=== PATIENT | female | born 1970 | race Caucasian/White ===

== ENCOUNTER 2018-06-03 11:44 | Inpatient (IN) | payer MEDICAID ==
[~2018-06-03] VITALS: Ht 170.2 cm; Wt 86.2 kg
[2018-06-03 13:07] LABS: BASOPHIL % 0.4 % (0-2); PLATELET COUNT 176 x10^3mcL (130-400); RED CELL DISTRIBUTION WIDTH 13.7 % (11.5-14.5)
[2018-06-03 13:11] LABS: CALCIUM 10.6 mg/dL (8.5-10.1); CARBON DIOXIDE 22.1 mmol/L (21-32); CHLORIDE SERUM 107 mmol/L (98-107); CREATININE SERUM 0.7 mg/dL (0.6-1.0); GFR1 > 60 mL/min; GLUCOSE SERUM 134 mg/dL (74-106); POTASSIUM SERUM 3.5 mmol/L (3.5-5.1); SODIUM SERUM 143 mmol/L (136-145)
[2018-06-03 13:12] LABS: ALBUMIN 3.6 g/dL (3.4-5.0); ALKALINE PHOSPHATASE 123 U/L (46-116); ALT/SGPT 102 U/L (14-59); AMYLASE 31 U/L (25-115); AST/SGOT 99 U/L (15-37); BILIRUBIN TOTAL 0.95 mg/dL (0.20-1.00); LIPASE 121 IU/L (73-393); TOTAL PROTEIN, SERUM 7.1 g/dL (6.4-8.2)
[2018-06-03 14:02] LABS: microscopic required? YES; urine erythrocyte 3+ (NEGATIVE)
[2018-06-03 16:16] LABS: MAGNESIUM 1.7 mg/dL (1.8-2.4)
[2018-06-03 16:17] LABS: CHOLESTEROL/HDL RATIO 4.2
[2018-06-03 16:18] LABS: FREE T4 3.32 ng/dL (0.76-1.46)
[2018-06-03 16:19] LABS: T3 TOTAL 3.91 ng/mL
[2018-06-03 16:27] LABS: FREE THYROXINE INDEX 7.3 ug/dL (1.4-4.5); T4(THYROXINE) 18.2 ug/dL (4.7-13.3)
[2018-06-03 18:37] VITALS: BP 137/59
[2018-06-03 19:56] LABS: AMPHETAMINE QUAL UR NONE DETECTED (See below)
[2018-06-03 20:30] VITALS: BP 124/55
[2018-06-04 05:52] VITALS: BP 119/53
[2018-06-04 06:10] LABS: BASOPHIL % 0.1 % (0-2); PLATELET COUNT 136 x10^3mcL (130-400); RED CELL DISTRIBUTION WIDTH 13.5 % (11.5-14.5)
[2018-06-04 06:22] LABS: CALCIUM 8.5 mg/dL (8.5-10.1); CARBON DIOXIDE 24.4 mmol/L (21-32); CHLORIDE SERUM 113 mmol/L (98-107); CREATININE SERUM 0.4 mg/dL (0.6-1.0); GFR1 > 60 mL/min; GLUCOSE SERUM 93 mg/dL (74-106); MAGNESIUM 1.7 mg/dL (1.8-2.4); PHOSPHOROUS 3.4 mg/dL (2.5-4.9); POTASSIUM SERUM 3.4 mmol/L (3.5-5.1); SODIUM SERUM 145 mmol/L (136-145)
[2018-06-04 08:59] VITALS: BP 131/55
[2018-06-04 13:44] VITALS: BP 129/57
[2018-06-04 19:42] VITALS: Ht 170.2 cm; Wt 86.2 kg
[2018-06-04 21:07] VITALS: BP 132/53
[2018-06-05 05:49] VITALS: BP 135/59
[2018-06-05 06:18] LABS: CALCIUM 9.5 mg/dL (8.5-10.1); CARBON DIOXIDE 27.7 mmol/L (21-32); CHLORIDE SERUM 108 mmol/L (98-107); CREATININE SERUM 0.5 mg/dL (0.6-1.0); GFR1 > 60 mL/min; GLUCOSE SERUM 88 mg/dL (74-106); MAGNESIUM 1.9 mg/dL (1.8-2.4); PHOSPHOROUS 3.3 mg/dL (2.5-4.9); POTASSIUM SERUM 3.8 mmol/L (3.5-5.1); SODIUM SERUM 143 mmol/L (136-145)
[2018-06-05 06:53] LABS: BASOPHIL % 0.3 % (0-2); PLATELET COUNT 143 x10^3mcL (130-400); RED CELL DISTRIBUTION WIDTH 13.7 % (11.5-14.5)
[2018-06-05 09:31] VITALS: BP 128/67
[2018-06-05 12:00] VITALS: BP 137/64
[2018-06-05 15:15] VITALS: BP 136/63
[2018-06-05 17:24] VITALS: BP 133/77
[2018-06-05 21:35] VITALS: BP 116/51
[2018-06-06 05:40] VITALS: BP 122/58
[2018-06-06 06:48] LABS: PLATELET COUNT 157 x10^3mcL (130-400)
[2018-06-06 07:02] LABS: BASOPHIL % 0 % (0-2); CALCIUM 9.2 mg/dL (8.5-10.1); CARBON DIOXIDE 25.6 mmol/L (21-32); CHLORIDE SERUM 108 mmol/L (98-107); CREATININE SERUM 0.4 mg/dL (0.6-1.0); GFR1 > 60 mL/min; GLUCOSE SERUM 129 mg/dL (74-106); POTASSIUM SERUM 3.6 mmol/L (3.5-5.1); SODIUM SERUM 143 mmol/L (136-145)
[2018-06-06 09:11] VITALS: BP 126/52
[2018-06-06 13:03] VITALS: BP 107/59
[2018-06-06] MEDS ORDERED: CIPRO500 MG PO (16:00)
[2018-06-06] MEDS ORDERED: LAC PO (16:00)
[2018-06-06] MEDS ORDERED: NOR10T PO (16:01)
[2018-06-06] MEDS ORDERED: COLACE100 MG PO (16:05)
[2018-06-06] MEDS ORDERED: FLO4 PO (16:14)
[2018-06-06 17:01] VITALS: BP 107/59
== END 2018-06-06 19:15 | disposition home or self-care (01) | DRG 446 ==
LOC: ED 11:44 → DU 15:19
PROVIDERS: Emergency Medicine; Internal Medicine; Urology
PROC: 0T778DZ Dilation of Left Ureter with Intraluminal Device, Via Natural or Artificial Opening Endoscopic (ICD-10-PCS; 2018-06-05)
PROC: 0TC78ZZ Extirpation of Matter from Left Ureter, Via Natural or Artificial Opening Endoscopic (ICD-10-PCS; principal; 2018-06-05 13:00)
DX: N13.2 Hydronephrosis with renal and ureteral calculous obstruction (principal); N17.0 Acute kidney failure with tubular necrosis; E83.42 Hypomagnesemia; E83.39 Other disorders of phosphorus metabolism; E83.52 Hypercalcemia; N39.0 Urinary tract infection, site not specified; R31.9 Hematuria, unspecified; R74.0 Nonspecific elevation of levels of transaminase and lactic acid dehydrogenase [LDH]; Z68.29 Body mass index [BMI] 29.0-29.9, adult; E05.90 Thyrotoxicosis, unspecified without thyrotoxic crisis or storm
CPT/HCPCS: 52356; S2070; 83880; 84439; C2625; J0696; J1885; J1956; J2060; J2270; J2405; J2550; J2704; J3010; J3475; J3490; J7030; J7050

== ENCOUNTER 2019-09-25 18:34 | Emergency (ER) | payer MEDICAID ==
[~2019-09-25] VITALS: Ht 160 cm; Wt 86.2 kg
[~2019-09-25 18:34] MED LIST: CIPRO500 MG PO; COLACE100 MG PO; FLO4 PO; LAC PO; NOR10T PO
[2019-09-25 19:00] VITALS: BP 137/54; Ht 160 cm; Wt 86.2 kg
== END 2019-09-25 22:31 | disposition home or self-care (01) ==
LOC: ED 18:34
DX: S40.011A Contusion of right shoulder, initial encounter (principal); S20.211A Contusion of right front wall of thorax, initial encounter; W01.0XXA Fall on same level from slipping, tripping and stumbling without subsequent striking against object, initial encounter; Y93.89 Activity, other specified; Y92.89 Other specified places as the place of occurrence of the external cause; Y99.8 Other external cause status
CPT/HCPCS: J1885